=== PATIENT | female | born 1955 | race Caucasian/White ===

== ENCOUNTER 2016-08-20 16:51 | Emergency (ER) | payer BC ==
[~2016-08-20] VITALS: Ht 177.8 cm; Wt 90.7 kg
[2016-08-20] MEDS ORDERED: BRIN1TAB PO (17:01)
[2016-08-20 17:59] LABS: MEAN CORPUSCULAR HEMOGLOBIN 31.9 pg (27.0-33.0); MEAN CORPUSCULAR HGB CONC 34.9 g/dl (32.0-36.5); MEAN CORPUSCULAR VOLUME 91.4 fl (80.0-96.0); PLATELET COUNT, AUTOMATED 149 k/mm3 (150-450); RED CELL DISTRIBUTION WIDTH 14.4 % (11.5-14.5); WHITE BLOOD COUNT 7.6 K/mm3 (4.0-10.0)
--- NOTE | 2016-08-20 18:07 | REP ---
PORTABLE CHEST: HISTORY: Chest pain. COMPARISON: 02/17/2008 The technique utilized in obtaining the radiograph has magnified the cardiac silhouette and accentuated the interstitial markings. Since the last examination, a central venous catheter Mediport device has been placed, the tip is in the superior vena cava. The catheter is from a right internal jugular approach. There is no pneumothorax. There is a minimal discoid opacity in the left lung base, probably subsegmental atelectatic change. The lung andersen are otherwise clear. The heart is not enlarged. The pleural angles are sharp. The osseous structures are within normal limits. IMPRESSION: Suspect discoid subsegmental atelectatic change left lower lobe versus possibility of developing early pneumonia. Correlate clinically. Signed by Oswaldo Wylie DO 08/22/2016 03:43 P
[2016-08-20 18:15] LABS: ANION GAP 8 MEQ/L (8-16); BLOOD UREA NITROGEN 12 MG/DL (7-18); CALCIUM LEVEL 9.1 MG/DL (8.8-10.2); CARBON DIOXIDE LEVEL 30 MEQ/L (21-32); CHLORIDE LEVEL 103 MEQ/L (98-107); CREATININE FOR GFR 0.67 MG/DL (0.55-1.02); GLOMERULAR FILTRATION RATE > 60.0 (>45); GLUCOSE, FASTING 109 MG/DL (80-110); POTASSIUM SERUM 3.8 MEQ/L (3.5-5.1); SODIUM LEVEL 141 MEQ/L (136-145)
[2016-08-20 19:10] LABS: BANDS 12 % (< 11); BASOPHILS 3 % (0-4); DOHLE BODIES 1+; EOSINOPHILS 4 % (0-5); SCHISTOCYTES 1+; TOXIC GRANULATION 2+
[2016-08-20 19:11] LABS: POIKILOCYTOSIS 1+; TEAR DROP CELLS 1+
[2016-08-20] MEDS ORDERED: LEVO750T33 PO (21:24)
[2016-08-20] MEDS ORDERED: LevoFLOXacin 750 MG TABLET PO ONE (21:30)
[2016-08-20 21:32] VITALS: BP 136/67
--- NOTE | 2016-08-21 08:40 | ECGEPIP ---
Stationary ECG Study [facility] - ED Test Date: 2016-08-20 Pat Name: JAIRO TIPTON Department: Room: - Gender: F [employer]visor [employer]: : 1955 Requested By: Marina Manriquez Order Number: [id number] Reading MD: Marina Manriquez Measurements Intervals [place] Rate: 82 P: 54 MS: 166 QRS: 38 QRSD: 87 T: 39 QT: 383 QTc: 449 Interpretive Statements SINUS RHYTHM NO PRIOR FOR COMPARISON Electronically Signed On 08-21-2016 8:40:10 EDT by Marina Manriquez
--- NOTE | 2016-08-21 08:42 | ECGEPIP ---
Stationary ECG Study [facility] - ED Test Date: 2016-08-20 Pat Name: JAIRO TIPTON Department: Room: - Gender: F [employer]: mallory : 1955 Requested By: FANI JIANG Order Number: [id number] Reading MD: Marina Manriquez Measurements Intervals [place] Rate: 81 P: 45 [place]: 163 QRS: 12 QRSD: 85 T: 33 QT: 367 QTc: 428 Interpretive Statements SINUS RHYTHM SIMILAR 08/20/16 17:07 Electronically Signed On 08-21-2016 8:42:27 EDT by Marina Manriquez
== END 2016-08-20 21:42 | disposition home or self-care (01) ==
LOC: M ED 18:26
DX: J18.9 Pneumonia, unspecified organism (principal)

== ENCOUNTER → 2018-07-05 | Outpatient (REF) ==
[~2018-07-05] MED LIST: BRIN1TAB PO; LEVO750T13 PO
[2018-07-05 12:28] LABS: RUBELLA IgG QUALITATIVE IMMUNE (IMMUNE)
== END ==
LOC: M LAB 11:04
PROVIDERS: ATTEND Nurse Practitioner Adult Health
DX: Z02.89 Encounter for other administrative examinations (principal)

== ENCOUNTER → 2020-07-30 | Outpatient (REF) | payer BC | LOC: M WUC 10:37 | PROVIDERS: ATTEND Physician Assistant | DX: R05 Cough (principal) ==

== ENCOUNTER → 2020-07-30 | Outpatient (CLI) | payer BC ==
[2020-07-30 12:58] LABS: BASO % 0.6 % (0.0-1.0); EOS # 0.4 10^3/uL (0.0-0.5); EOS % 6.6 % (0.0-3.0); HEMATOCRIT 38.8 % (36.0-47.0); HEMOGLOBIN 12.9 g/dl (12.0-15.5); LYMPH # 1.7 10^3/uL (1.5-5.0); LYMPH % 32.1 % (24.0-44.0); MEAN CORPUSCULAR HEMOGLOBIN 30.8 pg (27.0-33.0); MEAN CORPUSCULAR HGB CONC 33.2 g/dl (32.0-36.5); MEAN CORPUSCULAR VOLUME 92.6 fl (80.0-96.0); MONO # 0.3 10^3/uL (0.0-0.8); NEUTROPHILS # 2.9 10^3/uL (1.5-8.5); NEUTROPHILS % 54.5 % (36.0-66.0); PLATELET COUNT, AUTOMATED 223 10^3/uL (150-450); RED BLOOD COUNT 4.19 10^6/uL (4.00-5.40); WHITE BLOOD COUNT 5.3 10^3/uL (4.0-10.0)
[2020-07-30 13:29] LABS: ALT/SGPT 19 U/L (12-78); BILIRUBIN,TOTAL 0.4 MG/DL (0.2-1.0); BLOOD UREA NITROGEN 15 MG/DL (7-18); CALCIUM LEVEL 9.7 MG/DL (8.8-10.2); CARBON DIOXIDE LEVEL 31 MEQ/L (21-32); CHLORIDE LEVEL 105 MEQ/L (98-107); CREATININE FOR GFR 0.74 MG/DL (0.55-1.30); GLOMERULAR FILTRATION RATE > 60.0 (>45); GLUCOSE, FASTING 102 MG/DL (70-100); POTASSIUM SERUM 4.4 MEQ/L (3.5-5.1); SODIUM LEVEL 138 MEQ/L (136-145); TOTAL PROTEIN 6.3 GM/DL (6.4-8.2)
== END ==
LOC: M LAB 12:23
PROVIDERS: ATTEND Nurse Practitioner
DX: C50.812 Malignant neoplasm of overlapping sites of left female breast (principal)

== ENCOUNTER → 2020-08-15 | Outpatient (REF) | LOC: M LABSMTC 10:55 | PROVIDERS: ATTEND Pediatrics | DX: Z11.52 Encounter for screening for COVID-19 (principal) ==

== ENCOUNTER → 2021-06-07 | Outpatient (CLI) | payer BC | LOC: M EKG 09:13 | PROVIDERS: ATTEND Specialist | DX: Z01.810 Encounter for preprocedural cardiovascular examination (principal) ==

== ENCOUNTER → 2022-04-16 | Outpatient (REF) ==
[~2022-04-16] MED LIST changes: +LEVO1TAB40 PO; -LEVO750T13 PO
== END ==
LOC: M EMP 08:16
PROVIDERS: ATTEND Family Medicine
DX: Z11.52 Encounter for screening for COVID-19 (principal)

== ENCOUNTER → 2022-05-08 | Outpatient (CLI) | payer BC | LOC: M WHC 09:59 | PROVIDERS: ATTEND Internal Medicine | DX: C50.812 Malignant neoplasm of overlapping sites of left female breast (principal); M85.89 Other specified disorders of bone density and structure, multiple sites ==

== ENCOUNTER → 2022-06-08 | Outpatient (CLI) | payer BC ==
[~2022-06-08] MED LIST changes: +LETR2.5T2; +MYRB50TA; +SERT50TA29; +VITA100093 PO; +balance of nature
== END ==
LOC: M LABSMTC 10:17
PROVIDERS: ATTEND Anesthesiology
DX: Z01.812 Encounter for preprocedural laboratory examination (principal); Z20.822 Contact with and (suspected) exposure to COVID-19

== ENCOUNTER 2022-06-11 06:35 | Day surgery (SDC) | payer BC ==
[~2022-06-11] VITALS: Ht 177.8 cm; Wt 87.1 kg
[~2022-06-11 06:35] MED LIST changes: +NS 1,000 ML IV ONE
[2022-06-11] MEDS ORDERED: LIDOCAINE 2% 100MG/5ML SDV (FOR ANES.) As Ordered ONE (07:10)
[2022-06-11] MEDS ORDERED: propofoL 500 MG/50 ML VIAL As Ordered ONE (07:11)
[2022-06-11] MEDS ORDERED: fentaNYL 100 MCG/2 ML INJECTION As Ordered ONE (07:12)
[2022-06-11 08:32] VITALS: BP 134/75
== END 2022-06-11 08:35 | disposition home or self-care (01) ==
LOC: M OPP 06:35
PROVIDERS: ATTEND Internal Medicine Gastroenterology
DX: Z12.11 Encounter for screening for malignant neoplasm of colon (principal); K64.0 First degree hemorrhoids; K57.30 Diverticulosis of large intestine without perforation or abscess without bleeding; K22.70 Barrett's esophagus without dysplasia; K31.A11 Gastric intestinal metaplasia without dysplasia, involving the antrum; F17.200 Nicotine dependence, unspecified, uncomplicated; Z79.811 Long term (current) use of aromatase inhibitors; Z79.899 Other long term (current) drug therapy; Z85.3 Personal history of malignant neoplasm of breast; Z85.44 Personal history of malignant neoplasm of other female genital organs; Z92.21 Personal history of antineoplastic chemotherapy; Z92.23 Personal history of estrogen therapy; Z86.16 Personal history of COVID-19; Z80.3 Family history of malignant neoplasm of breast
CPT/HCPCS: 43239; 45378; 88305; J3010

== ENCOUNTER → 2023-04-13 | Outpatient (CLI) | payer MEDICARE, OTHER ==
[~2023-04-13] MED LIST changes: -NS 1,000 ML IV ONE
[2023-04-13 15:25] LABS: BASO # 0.1 10^3/uL (0.0-0.2); BASO % 0.5 % (0.0-1.0); EOS # 0.1 10^3/uL (0.0-0.5); EOS % 1.2 % (0.0-3.0); HEMATOCRIT 30.5 % (36.0-47.0); HEMOGLOBIN 10.1 g/dl (12.0-15.5); LYMPH # 1.6 10^3/uL (1.5-5.0); LYMPH % 15.1 % (24.0-44.0); MEAN CORPUSCULAR HEMOGLOBIN 28.9 pg (27.0-33.0); MEAN CORPUSCULAR HGB CONC 33.1 g/dl (32.0-36.5); MEAN CORPUSCULAR VOLUME 87.4 fl (80.0-96.0); MONO % 9.4 % (2.0-8.0); NEUTROPHILS # 7.8 10^3/uL (1.5-8.5); NEUTROPHILS % 73.5 % (36.0-66.0); PLATELET COUNT, AUTOMATED 271 10^3/uL (150-450); RED BLOOD COUNT 3.49 10^6/uL (4.00-5.40); WHITE BLOOD COUNT 10.7 10^3/uL (4.0-10.0)
== END ==
LOC: M LAB 14:41
PROVIDERS: ATTEND Family Medicine
DX: I10 Essential (primary) hypertension (principal)

== ENCOUNTER → 2023-08-31 | Outpatient (CLI) | payer OTHER ==
[2023-08-31 14:09] LABS: BASO # 0.1 10^3/uL (0.0-0.2); EOS # 0.4 10^3/uL (0.0-0.5); EOS % 6.9 % (0.0-3.0); HEMOGLOBIN 13.7 g/dl (12.0-15.5); LYMPH # 1.9 10^3/uL (1.5-5.0); LYMPH % 30.6 % (24.0-44.0); MEAN CORPUSCULAR HEMOGLOBIN 31.1 pg (27.0-33.0); MEAN CORPUSCULAR HGB CONC 33.4 g/dl (32.0-36.5); MEAN CORPUSCULAR VOLUME 93.2 fl (80.0-96.0); MONO # 0.5 10^3/uL (0.0-0.8); MONO % 7.6 % (2.0-8.0); NEUTROPHILS # 3.3 10^3/uL (1.5-8.5); NEUTROPHILS % 53.7 % (36.0-66.0); PLATELET COUNT, AUTOMATED 258 10^3/uL (150-450); WHITE BLOOD COUNT 6.1 10^3/uL (4.0-10.0)
== END ==
LOC: M PLALAB 09:41
PROVIDERS: ATTEND Family Medicine
DX: D64.9 Anemia, unspecified (principal)

== ENCOUNTER → 2024-09-19 | Outpatient (CLI) | payer MEDICARE, OTHER | LOC: M WHC 12:18 | PROVIDERS: ATTEND Nurse Practitioner | DX: Z13.820 Encounter for screening for osteoporosis (principal); M85.851 Other specified disorders of bone density and structure, right thigh; M85.852 Other specified disorders of bone density and structure, left thigh; M85.88 Other specified disorders of bone density and structure, other site; Z79.811 Long term (current) use of aromatase inhibitors ==